=== PATIENT | female | born 1955 | race Caucasian/White ===

== ENCOUNTER → 2016-03-23 | Outpatient (CLI) | payer BC ==
[~2016-03-23] MED LIST: ALBUAER INH; CALC600T9 PO; CHOL1000 PO; CITA20TA4 PO; HYDR-5688 PO; HYT/2 PO; LPT10 PO; MULT-506 PO; NITR100C41 PO; QVRINH80 INH
[2016-03-23 17:07] LABS: URINE APPEARANCE CLEAR (CLEAR); URINE BILIRUBIN NEG (NEG); URINE COLOR YELLOW; URINE EPITHELIAL CELL AUTO 0-5 /lpf (0-5); URINE NITRITE NEG (NEG); URINE SPECIFIC GRAVITY 1.013 (1.000-1.030); UROBILINOGEN NEG (NEG)
[2016-03-23 17:17] LABS: MANUAL MICROSCOPIC REQUIRED? NO; REVIEW REQ? NO
== END | disposition home or self-care (01) ==
LOC: C.LABBC 12:12
PROVIDERS: ATTEND Internal Medicine
DX: E78.5 Hyperlipidemia, unspecified (principal); R35.0 Frequency of micturition

== ENCOUNTER → 2016-03-30 | Day surgery (SDC) | payer BC ==
[2016-03-15 12:15] LABS: BASO % 1.1 %; BASO ABS # 0.04 K/uL (0-0.2); COMPLETE YES; HEMATOCRIT 42.2 % (37-47); LYMPH % 38.7 %; LYMPH ABS # 1.35 K/uL (1.2-3.4); MEAN CELL VOLUME 93.8 fL (80-100); MEAN CORPUSCULAR HEMOGLOBIN 31.3 pg (25-34); MEAN CORPUSCULAR HGB CONC 33.4 g/dl (32-36); MEAN PLATELET VOLUME 10.5 fL (7.4-10.4); MONO % 10.3 %; NEUT % 45.9 %; PLATELET COUNT 250 K/uL (130-400); WHITE BLOOD COUNT 3.49 K/uL (4.8-10.8)
[2016-03-15 12:25] LABS: BLOOD UREA NITROGEN 13 mg/dl (7-18); BUN/CREATININE RATIO 14.9 (10-20); CALCIUM 9.3 mg/dl (8.5-10.1); CARBON DIOXIDE 29 mmol/L (21-32); CHLORIDE 106 mmol/L (98-107); GLUCOSE 86 mg/dl (70-99); SODIUM 142 mmol/L (136-145)
[2016-03-22 12:56] VITALS: Ht 162.6 cm; Wt 68.2 kg
[~2016-03-30] VITALS: Ht 162.6 cm; Wt 68.2 kg
[~2016-03-30] MED LIST changes: +ATROPINE SULFATE 0.1 MG/ML 5ML SYR IV PRN; +BUPIVACAINE 0.5 % 5 MG/1 ML MPF 30ML VIAL ONE; +BUPIVACAINE/EPINEPHRINE 0.5% MPF 1:200,000 30 ML VIAL ONE; +CEFAZOLIN 1000MG/55 ML D5W IV SCH; +DEXAMETHASONE SOD INJ 4 MG/ML VIAL ONE; +EpHEDrine SULFATE INJ 50 MG/ML AMP IV PRN; +EpHEDrine SULFATE INJ 50 MG/ML AMP ONE; +FENTANYL CITRATE INJ 50 MCG/1 ML 2 ML VIAL IV PRN; +FENTANYL CITRATE INJ 50 MCG/1 ML 2 ML VIAL ONE; +FLUMAZENIL 0.1 MG/1 ML 10 ML VIAL IV PRN; +GLYCOPYRROLATE INJ 0.2 MG/ML VIAL ONE; +HYDROCODONE/ACETAMOPHEN 5/325MG TAB PO PRN; +HYDROmorphone INJ 2 MG/ML SYR/VIAL IV PRN; +LABETALOL HCL IV 5 MG/ML 20ML IV PRN; +LACTATED RINGER'S 1000ML 1,000 ML IV SCH; +LIDOCAINE HCL 2% 2 ML VIAL (20MG/ML) ONE; +LIDOCAINE/EPINEPHRINE 1% INJ 50 ML VIAL ONE; +MEPERIDINE HCL 25 MG/ML CARP IV PRN; +MIDAZOLAM HCL 1 MG/ML 2ML VIAL ONE; +MoRPHine SULFATE 2 MG/ML CARP IV PRN; +NALOXONE HCL 0.4 MG/1 ML VIAL/CARP IV PRN; +ONDANSETRON INJ 2 MG/ML 2 ML VIAL IV PRN; +ONDANSETRON INJ 2 MG/ML 2 ML VIAL ONE; +PHENYLEPHRINE 100MCG/ML 5ML SYR IV PRN; +PROPOFOL IV EMULSION 10 MG/ML 20 ML VIAL IV ONE; +SODIUM CHLORIDE 0.9% 1000ML 1,000 ML IV SCH; +SODIUM CHLORIDE 0.9% INJ 10 ML VIAL ONE
--- NOTE | 2016-03-30 06:50 | History & Physical Bridge Note ---
H&P Re-Evaluation Bridge Note: I have examined the patient, reviewed the History & Physical and in the interval since the performance of the History & Physical I have noted the following changes of clinical significance: No changes noted
--- NOTE | 2016-03-30 08:53 | [facility] Post Operative Brief Note ---
Immediate Operative Summary Operative Date Mar 30, 2016. Pre-Operative Diagnosis Right Foot Ganglion Cyst Post-Operative Diagnosis Same Procedure(s) Performed Right Foot Ganglion Cyst Excision Surgeon Dr. Rhodes Dock Operator Surgeon(s) Cezar Foster MD Estimated Blood Loss 10 mL Findings ganglion emanating from first MTP joint Specimens A.) Right Foot Ganglion Drains 0 Anesthesia LMA Complication(s) None Disposition Recovery Room / PACU
--- NOTE | 2016-03-30 09:10 | Discharge Instructions-SurgCtr ---
Discharge Instructions Visit Reason for Visit: Right Foot Ganglion Cyst Discharge Discharge Diagnosis / Problem: Right foot ganglion cyst excision Discharge Goals Goal(s): Decrease discomfort, Improve function, Increase independence Activity Recommendations Activity Limitations: per Instructions/Follow-up section Anesthesia . Post Anesthesia Instructions: If you have had General Anesthesia or IV Sedation: * Do not drive today. * Resume driving when surgeon permits. * Do not make important decisions or sign legal documents today. * Call surgeon for: 1. Temperature elevations greater than 101 degrees F. 2. Uncontrollable pain. 3. Excessive bleeding. 4. Persistent nausea and vomiting. 5. Medication intolerance (nausea, vomiting or rash). * For nausea and vomiting use only clear liquids such as: tea, soda, bouillon until nausea subsides, then gradually increase diet as tolerated. * If you have any concerns or questions, call your surgeon's office. If physician is unavailable and it is an emergency, call 911 or go to the nearest emergency room. . Instructions / Follow-Up Instructions / Follow-Up DIET: * Resume previous diet. MEDICATIONS: * Please take your prescriptions as instructed at your pre-op appointment and/ or see medication discharge instructions listed above. * If concerns develop, call your physician's office at . SPECIAL CARE INSTRUCTIONS: * Can do full weight bearing with postop shoe. * Ice/Elevate as instructed. * Keep dressing clean, dry, intact. * Your surgical extremity may be discolored due to prepping agents used on the skin. A bluish-green tint is a normal variant and should not cause alarm. Call your doctor at [phone] if: * Temperature above 101 degrees * Pain not relieved by pain medicine ordered * There is increased drainage or redness from any incision * You have any unanswered questions, problems or concerns. FOLLOW UP VISIT: * If not already scheduled, please call the office at to schedule a follow-up appointment. * Follow up with Dr. Rhodes on 04/11/16 Diet Recommendations Home Diet: no limitations, resume previous diet Procedures Procedures Performed: Right Foot Ganglion Cyst Excision Pending Studies Studies pending at discharge: no Medical Emergencies . Who to Call and When: Medical Emergencies: If at any time you feel your situation is an emergency, please call 911 immediately. . Non-Emergent Contact Non-Emergency issues call your: Surgeon Call Non-Emergent contact if: you have a fever, your pain is not controlled, wound has increased drainage . . "Provider Documentation" section prepared by Miguel Angel Ash.
--- NOTE | 2016-03-30 09:12 | [facility] Post Operative Brief Note ---
Immediate Operative Summary Operative Date Mar 30, 2016. Pre-Operative Diagnosis Right Foot Ganglion Cyst Post-Operative Diagnosis Same Procedure(s) Performed Right Foot Ganglion Cyst Excision Surgeon Dr. Rhodes Towel Stretcher Surgeon(s) Cezar Foster MD Estimated Blood Loss 10 mL Findings Right foot cystic mass Specimens A.) Right Foot Ganglion Complication(s) None Disposition PCU
--- NOTE | 2016-03-30 09:18 | OPERATIVE REPORT ---
DATE OF OPERATION: 03/30/2016 PREOPERATIVE DIAGNOSIS: Ganglion cyst on the dorsum of the right foot. POSTOPERATIVE DIAGNOSIS: Ganglion cyst on the dorsum of the right foot originating from the first metatarsophalangeal joint. PROCEDURE PERFORMED: Excision of right foot dorsal ganglion cyst. SURGEON: Dr. Rhodes. PIPE BUFFER: Miguel Angel Tai MD, fellow. No resident or PA available. ANESTHESIA: Laryngeal mask. INDICATIONS OF PROCEDURE: The patient is a 61-year-old female with a large ganglion cyst on the dorsum of the right foot. This has been aspirated previously and has recurred. This cyst was about 4-5 cm long, 3 cm wide and 2 cm thick. It was situated on the dorsum of the foot just proximal to the tarsometatarsal joint. It interferes with shoe wear. Treatment options, risks and benefits were discussed and she elected to proceed with operative intervention. PROCEDURE IN DETAIL: Informed consent was obtained. The patient identified as Yary Corcoran. She identified the operative site as the right foot. I marked it with my initials. A preop surgical time-out was performed. A preop dose of IV antibiotics was given. She was taken to the operating room, positioned supine on the operating room table. A laryngeal mask anesthetic was administered. A tourniquet was applied to the right calf just below the fibular neck. The right foot was then prepped and draped in usual sterile fashion. The ganglion cyst was soft and pliable and was as mentioned above. DVT prophylaxis will be done with early mobility. A bump was placed under the right hip. Prior to the procedure and prior to prepping and draping, the course of the dorsalis pedis artery was identified proximal to the ganglion and marked. I could not identify it reliably on either side, but it seemed to be more towards the lateral side than the medial side. The right foot was then prepped and draped in usual sterile fashion. The limb was exsanguinated with the Esmarch, tourniquet inflated to 225 mmHg. I initially made approximate 6 cm incision centered over the cyst and extending several centimeters proximal in order to identify the neurovascular bundle. Blunt dissection was utilized down through the skin. The cyst was inadvertently ruptured and repaired with 3-0 Vicryl. Blunt dissection proximally was performed and the dorsalis pedis artery and the neurovascular bundle were identified deep and protected. The cyst was then carefully shelled out from the surrounding tissues. Care was taken on the lateral side to identify and protect the neurovascular bundle. Medially, the cyst was intimately associated with it and scarred into the extensor hallucis brevis and longus tendons and these were meticulously dissected out from there adhesions to the cyst wall. After dissecting out the cyst in the mid foot it was noted that it had a well-defined socket that went distally and appeared to track along the path of the EHL tendon sheath. The incision was therefore extended more distally and further dissection was performed again taking care to protect the neurovascular bundles and tendon. The incision had to be extended again as the stalk of the cyst clearly went down to the metatarsophalangeal joint. The incision was extended down to the level of the MTP joint dorsally. I then went ahead and carefully identified both tendons at the level of the joint and dissected the stalk down and it definitively came from the dorsal aspect of the MTP joint, a 5 x 5 mm2 of dorsal capsule was excised and the cyst was resected and sent for a pathological specimen. The tourniquet was let down and meticulous hemostasis was performed. There was pulsatile flow through the dorsalis pedis artery and there was no significant bleeding. The wound was copiously irrigated with sterile saline. Hemostasis with pressure and electrocautery. The EHL and EHB tendons remained intact and the extensor digitorum communis tendon located medially were also noted. The incision was then closed with interrupted horizontal mattress 4-0 nylon sutures. A 50:50 mixture of 1% lidocaine and 0.5% Marcaine, both with epinephrine was injected into the skin. A soft sterile dressing was applied along with a boot. The patient was then awakened from anesthesia without difficulty and taken to recovery room in stable condition. Specimens were as mentioned above. There were no complications. Counts were correct at the end of case. Blood loss was minimal/10 mL. At the conclusion of the operation, I spoke to patient's and informed him of my findings and gave detailed postoperative instructions. I discussed with him that due to the long stalk associated with the cyst and in an effort to prevent recurrence of the cyst, this required lengthening of the incision longer than the patient and I had discussed to adequately treat the pathology that was present. She can weightbear as tolerated. I attest to the content of the Intraoperative Record and any orders documented therein. Any exceptio ns are noted below.
--- NOTE | 2016-03-30 09:57 | Anesthesia Progress Nt - [facility] ---
Anesthesia Post Op Note Date & Time Mar 30, 2016 at 09:54 Vital Signs Pain Intensity: 2 Vital Signs Past 12 Hours Date Time Temp Pulse Resp B/P Pulse Ox O2 Delivery O2 Flow Rate FiO2 03/30/16 09:49 36.6 88 16 106/72 98 Room Air 03/30/16 09:39 82 9 99 03/30/16 09:38 113/80 03/30/16 09:34 83 20 100 03/30/16 09:34 86 20 03/30/16 09:33 118/77 03/30/16 09:29 85 17 03/30/16 09:29 87 17 97 03/30/16 09:28 113/79 03/30/16 09:24 89 22 99 03/30/16 09:24 89 22 03/30/16 09:23 119/86 03/30/16 09:19 83 12 100 03/30/16 09:19 83 12 03/30/16 09:18 129/84 03/30/16 09:14 89 20 03/30/16 09:14 93 20 99 03/30/16 09:13 119/73 03/30/16 09:09 93 16 100 03/30/16 09:09 92 16 03/30/16 09:08 121/77 03/30/16 09:04 93 17 03/30/16 09:04 93 17 100 03/30/16 09:04 37.1 95 16 117/79 100 Mask 6 03/30/16 06:30 36.8 72 16 112/75 95 Room Air Notes Mental Status: alert / awake / arousable, participated in evaluation Pt Amnestic to Procedure: Yes Nausea / Vomiting: adequately controlled Pain: adequately controlled Airway Patency, RR, SpO2: stable & adequate BP & HR: stable & adequate, see Notes Hydration State: stable & adequate Anesthetic Complications: no major complications apparent The patient was noted to have multiple PVCs during surgery and was treated with glycopyrrolate for bradycardia in the OR. Her vitals were otherwise stable. She was stable in the PACU but continued to exhibit PVCs on the monitor. A 12 lead EKG was obtained that showed PVCs along with a prolonged QT. The patient' s vital signs were all stable. The patient feels well aside from some surgical site pain. I spoke to Dr. Baron who will follow up with the patient as an outpatient.
[2016-03-30 10:05] VITALS: TEMP 36.8
[2016-03-30 10:49] VITALS: BP 105/67; PULSE 70; O2SAT 96
== END | disposition home or self-care (01) ==
LOC: X.SURG 06:17
PROVIDERS: ATTEND Physical Medicine & Rehabilitation Sports Medicine
DX: M67.40 Ganglion, unspecified site (principal); J45.909 Unspecified asthma, uncomplicated; E78.5 Hyperlipidemia, unspecified; K21.9 Gastro-esophageal reflux disease without esophagitis; F32.9 Major depressive disorder, single episode, unspecified; Z98.890 Other specified postprocedural states; Z82.49 Family history of ischemic heart disease and other diseases of the circulatory system; Z80.8 Family history of malignant neoplasm of other organs or systems

== ENCOUNTER → 2016-04-03 | Outpatient (CLI) | payer BC ==
[~2016-04-03] MED LIST changes: -ATROPINE SULFATE 0.1 MG/ML 5ML SYR IV PRN; -BUPIVACAINE 0.5 % 5 MG/1 ML MPF 30ML VIAL ONE; -BUPIVACAINE/EPINEPHRINE 0.5% MPF 1:200,000 30 ML VIAL ONE; -CEFAZOLIN 1000MG/55 ML D5W IV SCH; -DEXAMETHASONE SOD INJ 4 MG/ML VIAL ONE; -EpHEDrine SULFATE INJ 50 MG/ML AMP IV PRN; -EpHEDrine SULFATE INJ 50 MG/ML AMP ONE; -FENTANYL CITRATE INJ 50 MCG/1 ML 2 ML VIAL IV PRN; -FENTANYL CITRATE INJ 50 MCG/1 ML 2 ML VIAL ONE; -FLUMAZENIL 0.1 MG/1 ML 10 ML VIAL IV PRN; -GLYCOPYRROLATE INJ 0.2 MG/ML VIAL ONE; -HYDROCODONE/ACETAMOPHEN 5/325MG TAB PO PRN; -HYDROmorphone INJ 2 MG/ML SYR/VIAL IV PRN; -LABETALOL HCL IV 5 MG/ML 20ML IV PRN; -LACTATED RINGER'S 1000ML 1,000 ML IV SCH; -LIDOCAINE HCL 2% 2 ML VIAL (20MG/ML) ONE; -LIDOCAINE/EPINEPHRINE 1% INJ 50 ML VIAL ONE; -MEPERIDINE HCL 25 MG/ML CARP IV PRN; -MIDAZOLAM HCL 1 MG/ML 2ML VIAL ONE; -MoRPHine SULFATE 2 MG/ML CARP IV PRN; -NALOXONE HCL 0.4 MG/1 ML VIAL/CARP IV PRN; -ONDANSETRON INJ 2 MG/ML 2 ML VIAL IV PRN; -ONDANSETRON INJ 2 MG/ML 2 ML VIAL ONE; -PHENYLEPHRINE 100MCG/ML 5ML SYR IV PRN; -PROPOFOL IV EMULSION 10 MG/ML 20 ML VIAL IV ONE; -SODIUM CHLORIDE 0.9% 1000ML 1,000 ML IV SCH; -SODIUM CHLORIDE 0.9% INJ 10 ML VIAL ONE
== END | disposition home or self-care (01) ==
LOC: C.LABSPEC 17:29
PROVIDERS: ATTEND Nurse Practitioner Adult Health
DX: N39.0 Urinary tract infection, site not specified (principal)

== ENCOUNTER → 2016-04-21 | Outpatient (CLI) | payer BC | END | disposition home or self-care (01) | LOC: C.LAB 16:08 | PROVIDERS: ATTEND Nurse Practitioner Adult Health | DX: R82.90 Unspecified abnormal findings in urine (principal); A49.8 Other bacterial infections of unspecified site ==

== ENCOUNTER → 2016-05-08 | Outpatient (CLI) | payer BC ==
--- NOTE | 2016-05-08 11:05 | DIAGNOSTIC IMAGING REPORT ---
RENAL ULTRASOUND HISTORY: Recurrent urinary tract infections. COMPARISON: None. FINDINGS: Right kidney: 10.8 cm. No hydronephrosis. Normal corticomedullary differentiation and cortical thickness. Left kidney: 10.3 cm. No hydronephrosis. Normal corticomedullary differentiation and cortical thickness. Bladder: No bladder wall thickening. The bilateral ureteral jets were identified. IMPRESSION: Normal renal ultrasound. Electronically signed by: Frankie Proctor M.D. 05/08/2016 11:04 AM Dictated Date/Time: 05/08/2016 11:02 AM
== END | disposition home or self-care (01) ==
LOC: C.ULTR 10:30
PROVIDERS: ATTEND Nurse Practitioner Adult Health
DX: N39.0 Urinary tract infection, site not specified (principal)

== ENCOUNTER → 2016-05-17 | Outpatient (CLI) | payer BC | END | disposition home or self-care (01) | LOC: C.LABSPEC 17:15 | PROVIDERS: ATTEND Nurse Practitioner Adult Health | DX: N39.0 Urinary tract infection, site not specified (principal) ==

== ENCOUNTER → 2016-06-02 | Outpatient (CLI) | payer BC ==
[~2016-06-02] MED LIST changes: -NITR100C41 PO; +NITR100C43 PO
[2016-06-02 12:10] LABS: HEMATOCRIT 39.4 % (37-47); MEAN CELL VOLUME 92.7 fL (80-100); MEAN CORPUSCULAR HEMOGLOBIN 30.6 pg (25-34); MEAN PLATELET VOLUME 10.2 fL (7.4-10.4); PLATELET COUNT 279 K/uL (130-400); RED BLOOD COUNT 4.25 M/uL (4.2-5.4); WHITE BLOOD COUNT 10.72 K/uL (4.8-10.8)
[2016-06-02 12:29] LABS: URINE APPEARANCE CLEAR (CLEAR); URINE BILIRUBIN NEG (NEG); URINE COLOR YELLOW; URINE EPITHELIAL CELL AUTO >30 /lpf (0-5); URINE NITRITE NEG (NEG); UROBILINOGEN NEG (NEG); ZZUR CULT IF INDIC CLEAN CATCH YES
[2016-06-02 12:43] LABS: MANUAL MICROSCOPIC REQUIRED? NO; REVIEW REQ? YES
[2016-06-02 16:44] LABS: LYME DISEASE AB IGM NEG (NEG)
[2016-06-02 16:45] LABS: LYME DISEASE AB IGG NEG (NEG)
== END | disposition home or self-care (01) ==
LOC: C.LAB1850 09:45
PROVIDERS: ATTEND Physician Assistant
DX: M79.1 Myalgia (principal); N39.0 Urinary tract infection, site not specified

== ENCOUNTER → 2016-09-22 | Outpatient (CLI) | payer BC ==
[~2016-09-22] MED LIST changes: +NITR100C41 PO; -NITR100C43 PO
[2016-09-22 11:00] LABS: ALT/SGPT 33 U/L (12-78); AST/SGOT 22 U/L (15-37); BLOOD UREA NITROGEN 15 mg/dl (7-18); BUN/CREATININE RATIO 19.1 (10-20); CALCIUM 8.9 mg/dl (8.5-10.1); CARBON DIOXIDE 26 mmol/L (21-32); CHLORIDE 111 mmol/L (98-107); CREATININE 0.81 mg/dl (0.60-1.20); GLUCOSE 101 mg/dl (70-99); POTASSIUM 4.3 mmol/L (3.5-5.1); SODIUM 142 mmol/L (136-145)
[2016-09-22 11:03] LABS: ALB/GLOB RATIO 1.2 (0.9-2); ALKALINE PHOSPHATASE 75 U/L (45-117); CHOLESTEROL 181 mg/dl (0-200); CHOLESTEROL/HDL RATIO 2.5; HDL CHOLESTEROL 71 mg/dl; LDL CHOLESTEROL CALCULATED 93 mg/dl; TRIGLYCERIDES 84 mg/dl (0-150); VERY LOW DENSITY LIPOPROT CALC 17 mg/dl
== END | disposition home or self-care (01) ==
LOC: C.LABBC 09:00
PROVIDERS: ATTEND Internal Medicine
DX: E78.5 Hyperlipidemia, unspecified (principal); E55.9 Vitamin D deficiency, unspecified

== ENCOUNTER → 2016-10-24 | Day surgery (SDC) | payer BC ==
[2016-10-11 14:50] VITALS: Ht 162.6 cm; Wt 70.5 kg
[~2016-10-24] VITALS: Ht 162.6 cm; Wt 70.5 kg
[~2016-10-24] MED LIST changes: -HYDR-5688 PO; -HYT/2 PO; +LIDOCAINE HCL 2% 2 ML VIAL (20MG/ML) ONE; +PROPOFOL IV EMULSION 10 MG/ML 20 ML VIAL IV ONE; +SODIUM CHLORIDE 0.9% 500ML 500 ML IV ONE
[2016-10-24 10:33] VITALS: TEMP 36.6
--- NOTE | 2016-10-24 11:03 | Endo History and Physical ---
History & Physical Date of Service: Oct 24, 2016. Chief Complaint: screening Referring Physician: Dr. Baron History of Present Illness 61 yo CF who presents for colonoscopy secondary to history of colon polyps. Past Surgical History Hx Cardiac Surgery: No Hx Internal Defibrillator: No Hx Pacemaker: No Hx Abdominal Surgery: Yes (, CERVICAL CONIZATION, D&C) Hx of Implantable Prosthesis: No Hx Post-Op Nausea and Vomiting: No Hx Cancer Surgery: No Hx Thoracic Surgery: No Hx Orthopedic: Yes (GANGLION CYST REMOVED RT FOOT) Hx Urinary Tract Surgery: No Family History Polyp, IBD Social History Smoking Status: Never Smoker Hx Substance Use: No Hx Alcohol Use: Yes (1 GLASS OF WINE 4X WEEKLY) Allergies Coded Allergies: No Known Allergies (Verified , 10/24/16) Current Medications Reported Home Medications Medications Dose Route/Sig Max Daily Dose Days Date Category Nitrofurantoin (Nitrofurantoin Macrocrystal) 100 Mg Cap 1 Cap PO HS 10/11/16 Reported Proventil Hfa (Albuterol Sulfate) 108 Mcg/Act Aer 1 Puff INH UD PRN 03/22/16 Reported Qvar (Beclomethasone Dip) 80 Mcg/Act Aer 2 Puff INH QAM PRN 03/22/16 Reported Calcium + D (Calcium Carbonate-Vitamin D) 1 Tab Tab 1 Tab PO HS 03/22/16 Reported Vitamin D3 (Cholecalciferol) 1,000 Unit Tab 1 Tab PO HS 03/22/16 Reported Multivitamin (Multivitamins) Tab 1 Tab PO HS 03/22/16 Reported Citalopram Hydrobromide 20 Mg Tab 1 Tab PO HS 03/22/16 Reported Atorvastatin Calcium (Atorvastatin) 10 Mg Tab 1 Tab PO HS 03/22/16 Reported Vital Signs Weight (Kilograms): 70.45 Height (Feet): 5 Height (Inches): 4 Date Time Temp Pulse Resp B/P (MAP) Pulse Ox O2 Delivery O2 Flow Rate FiO2 10/24/16 10:33 36.6 64 20 110/65 (80) 96 Room Air Physical Exam General Appearance: WD/WN, no apparent distress Respiratory/Chest: Auscultation: breath sounds normal Cardiovascular: Heart Auscultation: RRR Abdomen: Bowel Sounds: normal Inspection & Palpation: soft, non-distended, no tenderness, guarding & rebound Assessment and Plan Assessment: 61 yo CF who presents for colonoscopy secondary to history of colon polyps. Plan: Proceed with colonoscopy.
--- NOTE | 2016-10-24 11:55 | Discharge Instructions ---
Endoscopy Patient Instructions Date / Procedure(s) Performed Oct 24, 2016. Colonoscopy Allergy Information Coded Allergies: No Known Allergies (Verified , 10/24/16) Discharge Date / Findings Oct 24, 2016. Internal hemorrhoids Medication Instructions OK to resume all medications today as prescribed Reported Home Medications Medications Dose Route/Sig Max Daily Dose Days Date Category Nitrofurantoin (Nitrofurantoin Macrocrystal) 100 Mg Cap 1 Cap PO HS 10/11/16 Reported Proventil Hfa (Albuterol Sulfate) 108 Mcg/Act Aer 1 Puff INH UD PRN 03/22/16 Reported Qvar (Beclomethasone Dip) 80 Mcg/Act Aer 2 Puff INH QAM PRN 03/22/16 Reported Calcium + D (Calcium Carbonate-Vitamin D) 1 Tab Tab 1 Tab PO HS 03/22/16 Reported Vitamin D3 (Cholecalciferol) 1,000 Unit Tab 1 Tab PO HS 03/22/16 Reported Multivitamin (Multivitamins) Tab 1 Tab PO HS 03/22/16 Reported Citalopram Hydrobromide 20 Mg Tab 1 Tab PO HS 03/22/16 Reported Atorvastatin Calcium (Atorvastatin) 10 Mg Tab 1 Tab PO HS 03/22/16 Reported Provider Instructions Activity Restrictions - No exercising or heavy lifting for 24 hours. - Do not drink alcohol the day of the procedure. - Do not drive a car or operate machinery until the day after the procedure. - Do not make any important decisions or sign important papers in 24 hours after the procedure. Following Day: - Return to full activity which may include returning to work/school. Diet Start your diet with liquids and light foods (jello, soup, juice, toast). Then eat your usual diet if not nauseated. Treatment For Common After Affects For mild abdominal pain, bloating, or excessive gas: - Rest - Eat lightly - Lie on right side Follow-Up Information Follow-up with Dr. Baron as scheduled Anesthesia Information What You Should Know You have had a procedure that required some medicine to reduce anxiety and discomfort. This treatment is called moderate sedation. After receiving the treatment, you may be sleepy, but you will be able to breathe on your own. The effects of the treatment may last for several hours. Follow these instructions along with Activity/Diet recommendations noted above: * Do NOT do anything where dizziness or clumsiness would be dangerous. * Rest quietly at home today, then you can be up and about tomorrow. * Have a responsible person stay with you the rest of today. * You may have had an I.V. today. If so, you may take the dressing off later today. Recommendations Call your doctor if: * Trouble breathing * Continuous vomiting for more than 24 hours * Temperature above 101 degrees * Severe abdominal pain or bloating * Pain not relieved by pain medicine ordered * There is increased drainage or redness from any incision * A large amount of rectal bleeding greater than 2-3 tablespoons. (If you had a polyp/s removed or have hemorrhoids, a small amount of blood - from the rectum is to be expected.) * You have any unanswered questions or concerns. IN THE EVENT OF A SERIOUS EMERGENCY, GO TO THE NEAREST EMERGENCY ROOM Your discharge instructions were prepared by provider Jv Dunaway. Patient Instructions Signature Page Yary Corcoran Patient (or Guardian) Signature/Date: I have read and understand the instructions given to me by my caregivers. Caregiver/RN/Doctor Signature/Date: The above-named patient and/or guardian has received patient instructions on this date. + Original Patient Signature Page (only) stays with chart. Please make copy for patient.
--- NOTE | 2016-10-24 12:22 | Anesthesiology Progress Note ---
Anesthesia Post Op Note Date & Time Oct 24, 2016 at 12:22 Vital Signs Pain Intensity: 0 Vital Signs Past 12 Hours Date Time Temp Pulse Resp B/P (MAP) Pulse Ox O2 Delivery O2 Flow Rate FiO2 10/24/16 12:09 64 16 104/67 (79) 96 Room Air 10/24/16 11:54 60 16 106/63 (77) 95 Room Air 10/24/16 10:33 36.6 64 20 110/65 (80) 96 Room Air Notes Mental Status: alert / awake / arousable, participated in evaluation Pt Amnestic to Procedure: Yes Nausea / Vomiting: adequately controlled Pain: adequately controlled Airway Patency, RR, SpO2: stable & adequate BP & HR: stable & adequate Hydration State: stable & adequate Anesthetic Complications: no major complications apparent
[2016-10-24 12:24] VITALS: BP 125/74; PULSE 57; O2SAT 99
--- NOTE | 2016-10-25 00:14 | GI REPORT ---
Procedure Date: 10/24/2016 11:28 AM Procedure: Colonoscopy Indications: High risk colon cancer surveillance: Personal history of colonic polyps Medicines: Monitored Anesthesia Care Complications: No immediate complications. Estimated Blood Loss: Estimated blood loss: none. Procedure: Pre-Anesthesia Assessment: - Prior to the procedure, a History and Physical was performed, and patient medications and allergies were reviewed. The patient's tolerance of previous anesthesia was also reviewed. The risks and benefits of the procedure and the sedation options and risks were discussed with the patient. All questions were answered, and informed consent was obtained. Prior Anticoagulants: The patient has taken no previous anticoagulant or antiplatelet agents. ASA Grade Assessment: II - A patient with mild systemic disease. After reviewing the risks and benefits, the patient was deemed in satisfactory condition to undergo the procedure. After I obtained informed consent, the scope was passed under direct vision. Throughout the procedure, the patient's blood pressure, pulse, and oxygen saturations were monitored continuously. The scope was introduced through the anus and advanced to the terminal ileum. The colonoscopy was performed without difficulty. The patient tolerated the procedure well. The quality of the bowel preparation was good. The terminal ileum, ileocecal valve, appendiceal orifice, and rectum were photographed. Findings: Non-bleeding internal hemorrhoids were found during retroflexion. The hemorrhoids were small. The exam was otherwise without abnormality. Impression: - Non-bleeding internal hemorrhoids. - The examination was otherwise normal. - No specimens collected. Recommendation: - Resume previous diet. - Continue present medications. - Repeat colonoscopy in 5 years for surveillance. - Return to primary care physician as previously scheduled. Jv Dunaway, 10/24/2016 12:17:43 PM This report has been signed electronically. Note Initiated On: 10/24/2016 11:28 AM I attest to the content of the Intraoperative Record and orders documented therein, exceptions below
== END | disposition home or self-care (01) ==
LOC: C.GI 10:15
PROVIDERS: ATTEND Internal Medicine
DX: Z12.11 Encounter for screening for malignant neoplasm of colon (principal); Z86.010 Personal history of colon polyps; K64.8 Other hemorrhoids; Z83.71 Family history of colonic polyps; Z83.79 Family history of other diseases of the digestive system; Z79.899 Other long term (current) drug therapy

== ENCOUNTER → 2017-05-30 | Outpatient (CLI) | payer BC ==
[~2017-05-30] MED LIST changes: -LIDOCAINE HCL 2% 2 ML VIAL (20MG/ML) ONE; -NITR100C41 PO; +NITR100C43 PO; -PROPOFOL IV EMULSION 10 MG/ML 20 ML VIAL IV ONE; -SODIUM CHLORIDE 0.9% 500ML 500 ML IV ONE
[2017-05-30 17:33] LABS: ALBUMIN 3.9 gm/dl (3.4-5.0); ALT/SGPT 25 U/L (12-78); AST/SGOT 25 U/L (15-37); BLOOD UREA NITROGEN 13 mg/dl (7-18); CALCIUM 9.1 mg/dl (8.5-10.1); CARBON DIOXIDE 27 mmol/L (21-32); CREATININE 0.84 mg/dl (0.60-1.20); GLUCOSE 101 mg/dl (70-99); POTASSIUM 4.2 mmol/L (3.5-5.1); SODIUM 138 mmol/L (136-145)
[2017-05-30 17:36] LABS: ALKALINE PHOSPHATASE 84 U/L (45-117); CHOLESTEROL 202 mg/dl (0-200); LDL CHOLESTEROL CALCULATED 114 mg/dl; TOTAL PROTEIN 7.1 gm/dl (6.4-8.2)
== END | disposition home or self-care (01) ==
LOC: C.LABBC 09:29
PROVIDERS: ATTEND Internal Medicine
DX: N39.0 Urinary tract infection, site not specified (principal); E78.5 Hyperlipidemia, unspecified; E55.9 Vitamin D deficiency, unspecified

== ENCOUNTER → 2017-10-04 | Outpatient (CLI) | payer BC ==
[~2017-10-04] MED LIST changes: +BECL80AE7 INH; -QVRINH80 INH
== END | disposition home or self-care (01) ==
LOC: C.PAPS 11:53
PROVIDERS: ATTEND Obstetrics & Gynecology
DX: Z01.419 Encounter for gynecological examination (general) (routine) without abnormal findings (principal)

== ENCOUNTER 2024-11-13 07:10 | Observation (INO) ==
--- NOTE | 2024-10-08 09:17 | PAT Medication Instructions ---
Medication Instructions Date of Service October 08, 2024 Home Medications Medication Instructions Recorded azelastine 137 mcg (0.1 %) nasal 2 spray intranasal BID PRN nasal 07/03/23 spray congestion #30 mL beclomethasone dipropionate 80 2 inh inhalation BID 90 days #31.8 07/03/23 mcg/actuation HFA breath activated grams aerosol (Qvar RediHaler) inhalational spacing device #1 ea 07/04/23 duloxetine 30 mg capsule,delayed 30 mg PO HS #90 caps 02/13/24 release benzonatate 100 mg capsule 100 mg PO TID PRN cough #30 caps 03/13/24 atorvastatin 10 mg tablet 10 mg PO HS #90 tabs 04/30/24 albuterol sulfate 90 mcg/actuation 2 puff inhalation Q6H PRN 07/24/24 aerosol inhaler shortness of breath or wheezing #25.5 grams cholecalciferol (vitamin D3) 50 mcg (2,000 unit) capsule 1,000 mcg PO HS multivitamin 1 tab PO 3XWK azelastine 137 mcg (0.1 %) nasal spray 2 spray intranasal BID PRN nasal congestion beclomethasone dipropionate 80 mcg/actuation HFA breath activated aerosol (Qvar RediHaler) 2 inh inhalation BID ipratropium bromide 21 mcg (0.03 %) nasal spray 2 spray intranasal TID PRN postnasal drip duloxetine 30 mg capsule,delayed release 30 mg PO HS benzonatate 100 mg capsule 100 mg PO TID PRN cough atorvastatin 10 mg tablet 10 mg PO HS albuterol sulfate 90 mcg/actuation aerosol inhaler 2 puff inhalation Q6H PRN shortness of breath or wheezing mecobalamin (vitamin B12) 1,000 mcg chewable tablet 1,000 mcg PO 2XWK omeprazole 40 mg capsule,delayed release 40 mg PO QAM GERD DO NOT take the morning of surgery multivitamin 1 tab PO 3XWK benzonatate 100 mg capsule 100 mg PO TID PRN cough mecobalamin (vitamin B12) 1,000 mcg chewable tablet 1,000 mcg PO 2XWK Take morning of surgery With a small sip of water, OTHERWISE NOTHING TO EAT OR DRINK AFTER MIDNIGHT: azelastine 137 mcg (0.1 %) nasal spray 2 spray intranasal BID PRN nasal congestion (if needed) beclomethasone dipropionate 80 mcg/actuation HFA breath activated aerosol (Qvar RediHaler) 2 inh inhalation BID ipratropium bromide 21 mcg (0.03 %) nasal spray 2 spray intranasal TID PRN postnasal drip (if needed) albuterol sulfate 90 mcg/actuation aerosol inhaler 2 puff inhalation Q6H PRN shortness of breath or wheezing (use if needed; please bring rescue inhaler with you to hospital day of surgery if possible) omeprazole 40 mg capsule,delayed release 40 mg PO QAM GERD Take evening before surgery cholecalciferol (vitamin D3) 50 mcg (2,000 unit) capsule 1,000 mcg PO HS azelastine 137 mcg (0.1 %) nasal spray 2 spray intranasal BID PRN nasal congestion (if needed) beclomethasone dipropionate 80 mcg/actuation HFA breath activated aerosol (Qvar RediHaler) 2 inh inhalation BID ipratropium bromide 21 mcg (0.03 %) nasal spray 2 spray intranasal TID PRN postnasal drip (if needed) duloxetine 30 mg capsule,delayed release 30 mg PO HS benzonatate 100 mg capsule 100 mg PO TID PRN cough (if needed) atorvastatin 10 mg tablet 10 mg PO HS albuterol sulfate 90 mcg/actuation aerosol inhaler 2 puff inhalation Q6H PRN shortness of breath or wheezing (if needed) Other Notes If you have any questions please call us at [phone] or [phone] or [phone] or [phone]
--- NOTE | 2024-10-10 12:57 | Anesthesiology Consultation ---
Date of Service October 10, 2024 Assessment & Plan (1) Encounter for pre-operative examination: Plan - awaiting surgeon ordered [place] PCP clearance, 10/24/24. - PCP office visit 10/02/24 [place]: "...UTI - resolved. Discussed that the symptoms she had may have been from the UTI..." - Outpatient joint assessment: Patient is currently scheduled for inpatient pathway. If re-evaluated and patient/surgeon requests outpatient pathway, patient is not ideal candidate for outpatient joint program. Chart Review Chart Review: Pending: Refer to Additional Notes / Consult section and Patient seen in Pre Admission Testing Teaching & Discussion Pre-Anesthesia Teaching/Discussion Notes: Instructed NPO after midnight before surgery, except medications with 15 cc of water. Medication instructions provided according to the PAT guidelines. History Surgery Operation Date: 11/13/24 11:30 Proposed Procedures p Right Total Knee Arthroplasty - Daryn Langston MD Height/Weight Height: 5 ft 2.5 in Weight: 67.8 kg Allergies Allergy/AdvReac Type Severity Reaction Status Date / Time No Known Allergies Allergy Verified 10/07/24 15:24 Medications Home Medications Medication Instructions Recorded Confirmed Last Taken cholecalciferol (vitamin D3) 50 1,000 mcg PO HS 05/17/19 10/07/24 01/01/24 mcg (2,000 unit) capsule multivitamin 1 tab PO 3XWK 07/21/19 10/07/24 01/01/24 azelastine 137 mcg (0.1 %) nasal 2 spray intranasal BID PRN nasal 07/03/23 10/07/24 Unknown spray congestion #30 mL beclomethasone dipropionate 80 2 inh inhalation BID 90 days #31.8 07/03/23 10/07/24 Unknown mcg/actuation HFA breath activated grams aerosol (Qvar RediHaler) inhalational spacing device #1 ea 07/04/23 10/02/24 Unknown ipratropium bromide 21 mcg (0.03 2 spray intranasal TID PRN 10/15/23 10/07/24 Unknown %) nasal spray postnasal drip duloxetine 30 mg capsule,delayed 30 mg PO HS #90 caps 02/13/24 10/07/24 Unknown release benzonatate 100 mg capsule 100 mg PO TID PRN cough #30 caps 03/13/24 10/07/24 Unknown atorvastatin 10 mg tablet 10 mg PO HS #90 tabs 04/30/24 10/07/24 Unknown albuterol sulfate 90 mcg/actuation 2 puff inhalation Q6H PRN 07/24/24 10/07/24 Unknown aerosol inhaler shortness of breath or wheezing #25.5 grams mecobalamin (vitamin B12) 1,000 1,000 mcg PO 2XWK 10/07/24 10/07/24 Unknown mcg chewable tablet omeprazole 40 mg capsule,delayed 40 mg PO QAM GERD 10/07/24 10/07/24 Unknown release Past Medical History Medical History (Updated 10/10/24 @ 13:26 by Regina Mckeon PA-C) Acid reflux infrequent Anxiety Asthma cough variant asthma, inhaler prn, rarely uses-last albuterol inhaler use several weeks ago Chronic reflux esophagitis "flares once in awhile" Chronic rhinitis DDD (degenerative disc disease), lumbar Dysgeusia chronic, intermittent History of dysphagia History of ESBL E. coli infection ~09/15/24 in urine - treated with abx. History of esophageal dilatation History of prolonged Q-T interval on ECG pt denies Hx of colonic polyp Hx of hematuria (2022) Hx of vertigo Hyperlipidemia Ileitis hx Left leg pain gets coxcomb get shots into both knees every 6 months Osteoarthritis Osteopenia Peripheral neuropathy chronic, feet and hands Prediabetes last A1C 5.8% (09/30/24) - no medications Recurrent UTI (urinary tract infection) "bladder is colonized by some kind of bacteria" - last treated for ESBL in urine ~09/15/24 with abx. Schatzki's ring Patient denies h/o stroke, seizures, heart attack, heart failure, HTN, blood clots/DVTs or blood transfusions. Exercise / Class Metabolic Activity II 4-5 Yardwork/Stairs/Walk up hill (denies chest discomfort or shortness of breath with one flight of stairs) Past Family History Family History Sister Breast cancer Father Coronary heart disease Lung cancer Colonic polyp Mother Acute gangrenous appendicitis with localized peritonitis, without perforation Skin cancer Diverticulosis Hyperlipidemia Hypertension Pancreatic cancer Other Cardiac disorder No family history of adverse response to anesthesia Past Surgical History Surgical History H/O arthroscopic knee surgery left knee History of biopsy 09/22/11 - endometrial biopsy d/t PMB History of colonoscopy with polypectomy History of cryosurgery cervix History of esophagogastroduodenoscopy (EGD) History of surgical procedure on mouth remove bicuspids - as a child History of surgical removal of ganglion cyst (03/30/16) 03/30/16 - right foot ganglion cyst removal Hx of cystoscopy in office, no issues S/P breast biopsy, left (10/31/13) 10/31/13 - stereotactic (benign, microcalcifications) S/P section x1 S/P dilation and curettage S/P fine needle biopsy (06/23/02) 06/23/02 - right breast (fibrocystic changes) Past Anesthesia History No Hx of Anesthesia Complications and No Family Hx of Anesthesia Complications History of PONV No Hx of PONV and No Hx of Motion Sickness Social History Smoking Status: Never smoker Do You Dip or Chew Tobacco: No Hx Alcohol Use: Yes Alcohol type: wine alcohol intake frequency: a few times a month Hx Substance Use: No substance use type: does not use Review of Systems Snoring, denies witnessed apneas. Patient denies chest pain, shortness of breath, dyspnea on exertion, fever, chills, cough, wheezing, or palpitations. Physical Exam Vital Signs Vitals BP 110/71 P 79 TEMP 98.3 SP02 96% on RA RESP 18 Physical Patient resting comfortably in chair in no acute distress, alert and oriented, responding appropriately throughout visit Full cervical extension range of motion without pain TMD 3.5 finger breadths Mallampati Score 2 Dentition: intact, denies chipped or loose teeth, caps/crowns, implants or bridges Lungs: normal respiratory effort. Good air movement, clear throughout to auscultation, no adventitious breath sounds Cardiac: regular rate and rhythm, no murmurs noted Carotid arteries: negative bruit bilat Lab Results Anesthesia Preop Results Results Anesthesia Widget: WBC 6.39 K/ul (4.8-10.8) 09/30/24 Hgb 13.1 g/dl (12.0-16.0) 09/30/24 Hct 38.6 % (37.0-47.0) 09/30/24 Plt 346 K/uL (130-400) 09/30/24 Na 139 mmol/L (136-145) 09/30/24 K 3.9 mmol/L (3.5-5.1) 09/30/24 Cl 107 mmol/L (98-107) 09/30/24 CO2 25 mmol/L (21-32) 09/30/24 BUN 17 mg/dl (6-23) 09/30/24 Creat 0.73 mg/dl (0.6-1.2) 09/30/24 Glucose Level 113 mg/dl (70-99(Fasting)) H 09/30/24 PT 10.7 Seconds (9.0-12.0) 10/10/24 PTT 28 Seconds (21-31) 10/10/24 INR 1.0 (0.9-1.1) 10/10/24 TSH 2.434 uIu/ml (0.300-4.500) 09/30/24 Free T4 0.60 ng/dl (0.61-1.60) L 09/30/24 HA1c 5.8 % (4.5-5.6) H 09/30/24 Urine Color Yellow 10/10/24 Urine Appearance Clear (Clear) 10/10/24 Urine pH 5.5 (4.5-7.5) 10/10/24 Urine Specific [place] 1.011 (1.000-1.030) 10/10/24 Urine Protein Negative (Negative) 10/10/24 Urine Glucose (UA) Negative (Negative) 10/10/24 Urine Ketones Negative (Negative) 10/10/24 Urine Blood Negative (Negative) 10/10/24 Urine Nitrite Positive (Negative) A 10/10/24 Urine Bilirubin Negative (Negative) 10/10/24 Urine Urobilinogen Negative (Negative) 10/10/24 Urine Leukocyte Esterase Negative (Negative) 10/10/24 Urine WBC (Auto) 0-5 /hpf (0-5) 10/10/24 Urine RBC (Auto) 0-2 /hpf (0-2) 10/10/24 Urine Hyaline Casts (Auto) 0-2 /lpf (0-2) 10/10/24 Urine Epithelial Cells (Auto) 0-2 /hpf (0-2) 10/10/24 Urine Bacteria (Auto) 4+ (None Seen) H 10/10/24 SARS-CoV-2, RNA, NAAT Negative 09/15/24 Blood Type O Positive 10/10/24 Antibody Screen NEGATIVE 10/10/24 Testing Laboratory Results Surgeon's office made aware of abnormal UA. Electrocardiogram Date: 10/10/24 NSR, rate 72 bpm Low voltage QRS Chest X-Ray Date: 10/10/24 No active cardiopulmonary disease.
--- NOTE | 2024-10-22 15:22 | History & Physical Report ---
Date of Service October 22, 2024 Assessment & Plan (1) Osteoarthritis of right knee: Plan: PRE-OP Diagnosis: Right knee osteoarthritis Planned Procedure: Right total knee arthroplasty Bone density scan of the right knee obtained 11/[address] [facility] show osteopenia Plan: Patient is scheduled to undergo this procedure at the [facility] with Dr. Lansgton on , November 13, 2024. Risks and complications of the procedure such as: Infection, bleeding, pain, scarring, nerve blood vessel damage, weakness, wound problems, stiffness, incomplete relief of symptoms, hardware failure, hardware loosening, wear, fracture, tendon or ligament injury, blood clots, embolism, cardiac, stroke and were explained to the patient at her visit today and informed consent for the procedure was obtained. We will need to obtain preoperative medical clearance from the patient's primary care provider. She is scheduled to see them on October 24. Patient is already met with anesthesia at the hospital and while there she obtained a CBC with differential, complete metabolic panel, PT/INR, blood type and screen, urinalysis, urine culture and sensitivity, EKG and a nasal culture for MRSA.patient's urinalysis did show signs of urinary tract infection that was treated with Cipro. I provided her with an order to obtain a repeat urinalysis this coming Sunday. During today's visit we reviewed the total knee packet. I provided the patient with paperwork to obtain obtaining a handicap placard for her vehicle. I provided her with information about lectures offered by [facility] in regards to joint replacement surgery. Patient has a walker that she will bring with her on the morning of surgery. I recommended that she purchase a shower chair and raised toilet seat. We discussed discharge planning from the hospital. Patient states she will most likely do in-home physical therapy for the first 2 weeks before transitioning to outpatient physical therapy. I advised the patient that she will be provided with a prescription for narcotic pain medication for postoperative pain control. We will have her on aspirin twice daily for the first 30 days postoperatively for blood clot prevention. Patient be scheduled for 2-week postoperative follow-up visit with myself on November 26. This chart was completed utilizing [employer] voice recognition software. Grammatical errors, random word insertions, pronoun errors, and in complete sentences are an occasional consequence of the system. Any questions or concerns about the content, text, or information contained within the body of this dictation should be addressed directly to the physician for clarification. History of Present Illness Chief Complaint: Chief Complaint: Right knee pain Primary Care Provider: Noy Cervantes MD History of Present Illness (including history relevant to procedure): This 69-year-old female presents to the clinic today for her preoperative history and physical. Patient states she has a longstanding history of right knee pain and has had hyaluronic acid injections 5 times. She has also had corticosteroid injections, iovera and has done extensive physical therapy without relief of her symptoms. Patient states she is also used topical Voltaren and Celebrex which were only minimally effective. Due to failed conservative management and persistent medial sided knee pain that is affecting her ability to ambulate properly and do activities that she likes to do, she is elected to proceed with surgical intervention. Review Of Systems: A 12 point review of systems is performed and is unremarkable except for those things stated in the HPI and past medical history. Past Medical History: Problems: Right knee pain Left hip pain Pre-op exam Tear of medial meniscus of left knee Osteoarthritis of left knee Pain in left knee Pain in right knee Skin lesion Preop examination Ganglion cyst Asthma Plantar fasciitis Hypercholesterolemia Anxiety Peripheral neuropathy GERD Hiatal hernia Procedure History Procedure Procedure Date Comments Ganglion cyst Arthroscopy of knee with medial meniscectomy 07/24/2019 - Left knee Shave biopsy and cauterization of skin/ED&C 08/29/2018 Shave biopsy and cauterization of skin 08/03/2016 Punch biopsy of skin 04/04/2016 - Left upper back delivery 1983 Cervical 1977 - [facility] Allergies and Sensitivities: NKA Current Home Meds: (Last Updated 10/21 14:48) DULoxetine (DULoxetine 30 mg oral delayed release capsule) 30 mg PO Daily atorvastatin (atorvastatin 10 mg oral tablet) 10 mg PO Daily celecoxib (CeleBREX) cholecalciferol (Vitamin D3) 1 tab PO Daily ciprofloxacin (ciprofloxacin 500 mg oral tablet) 500 mg PO q12h Preop UTI esomeprazole (esomeprazole 40 mg oral delayed release capsule) TAKE 1 CAPSULE BY MOUTH EVERY DAY multivitamin 1 tab PO Daily tretinoin topical (tretinoin 0.05% topical cream) 1 appl topical qhs Apply to face nightly and wait 2 hours between washing face and application. Allergies Allergy/AdvReac Type Severity Reaction Status Date / Time No Known Allergies Allergy Verified 10/07/24 15:24 Home Medications Medication Instructions Recorded Confirmed Type cholecalciferol (vitamin D3) 50 1,000 mcg PO HS 05/17/19 10/07/24 History mcg (2,000 unit) capsule multivitamin 1 tab PO 3XWK 07/21/19 10/07/24 History azelastine 137 mcg (0.1 %) nasal 2 spray intranasal BID PRN nasal 07/03/23 10/07/24 Rx spray congestion #30 mL beclomethasone dipropionate 80 2 inh inhalation BID 90 days #31.8 07/03/23 10/07/24 Rx mcg/actuation HFA breath activated grams aerosol (Qvar RediHaler) inhalational spacing device #1 ea 07/04/23 10/02/24 Rx ipratropium bromide 21 mcg (0.03 2 spray intranasal TID PRN 10/15/23 10/07/24 History %) nasal spray postnasal drip duloxetine 30 mg capsule,delayed 30 mg PO HS #90 caps 02/13/24 10/07/24 Rx release benzonatate 100 mg capsule 100 mg PO TID PRN cough #30 caps 03/13/24 10/07/24 Rx atorvastatin 10 mg tablet 10 mg PO HS #90 tabs 04/30/24 10/07/24 Rx albuterol sulfate 90 mcg/actuation 2 puff inhalation Q6H PRN 07/24/24 10/07/24 Rx aerosol inhaler shortness of breath or wheezing #25.5 grams mecobalamin (vitamin B12) 1,000 1,000 mcg PO 2XWK 10/07/24 10/07/24 History mcg chewable tablet omeprazole 40 mg capsule,delayed 40 mg PO QAM GERD 10/07/24 10/07/24 History release Past Med/Surg History Problem List (Updated 10/22/24 @ 15:21 by Elver Mulligan PA-C) Osteoarthritis of right knee Right knee pain Arthritis of knee, degenerative Mild persistent asthma Chronic rhinitis Peripheral neuropathy Decreased hearing Vitamin B12 deficiency Hip pain, bilateral Low back pain Asymptomatic bacteriuria DDD (degenerative disc disease), lumbar Hyperlipidemia Allergic rhinitis due to dogs (Acute) Allergic rhinitis due to dust (Acute) Asthma (Chronic) Asymptomatic cholelithiasis (Acute) Ganglion cyst of right foot (Acute) Impaired fasting glucose (Acute) Internal hemorrhoids (Acute) Postmenopausal atrophic vaginitis (Acute) Recurrent UTI (Acute) Schatzki's ring (Acute) Stress incontinence in female Tubular adenoma of colon (Acute) Vitamin D deficiency disease (Acute) Medical History Acid reflux infrequent Prediabetes last A1C 5.8% (09/30/24) - no medications History of ESBL E. coli infection ~09/15/24 in urine - treated with abx. History of esophageal dilatation Peripheral neuropathy chronic, feet and hands History of dysphagia Dysgeusia chronic, intermittent Hx of vertigo Hx of colonic polyp DDD (degenerative disc disease), lumbar Schatzki's ring Hx of hematuria (2022) Chronic rhinitis Left leg pain gets coxcomb get shots into both knees every 6 months Ileitis hx Anxiety Osteoarthritis Recurrent UTI (urinary tract infection) "bladder is colonized by some kind of bacteria" - last treated for ESBL in urine ~09/15/24 with abx. Asthma cough variant asthma, inhaler prn, rarely uses-last albuterol inhaler use several weeks ago Chronic reflux esophagitis "flares once in awhile" History of prolonged Q-T interval on ECG pt denies Hyperlipidemia Osteopenia Surgical History Hx of cystoscopy in office, no issues H/O arthroscopic knee surgery left knee History of surgical removal of ganglion cyst (03/30/16) 03/30/16 - right foot ganglion cyst removal History of colonoscopy with polypectomy History of esophagogastroduodenoscopy (EGD) History of surgical procedure on mouth remove bicuspids - as a child S/P fine needle biopsy (06/23/02) 06/23/02 - right breast (fibrocystic changes) S/P breast biopsy, left (10/31/13) 10/31/13 - stereotactic (benign, microcalcifications) History of biopsy 09/22/11 - endometrial biopsy d/t PMB History of cryosurgery cervix S/P dilation and curettage S/P section x1 Family History Sister Breast cancer Father Coronary heart disease Lung cancer Colonic polyp Mother Acute gangrenous appendicitis with localized peritonitis, without perforation Skin cancer Diverticulosis Hyperlipidemia Hypertension Pancreatic cancer Other Cardiac disorder No family history of adverse response to anesthesia Social History Smoking Status: Never smoker Second Hand Exposure: Yes (hx); Do You Dip or Chew Tobacco: No; Hx Alcohol Use: Yes Alcohol type: wine Hx Substance Use: No Preferred Language: Belarusian Communication Ability: Effective Visual Impairment: No Limitations Hearing Ability: Normal 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 Seatbelt Use: always Sunscreen Use: Yes Assistive Devices: Contacts and Glasses Review of Systems All systems reviewed & are unremarkable except as noted in Subjective Physical Exam Physical Exam: Initial Wt: 10/21 67.1 kg 148 lb Physical Exam: (relevant to the procedure, including heart and lung evaluation) General: Alert and oriented x 3 with proper grooming and hygiene Eyes: Pupils are equal reactive to light with accommodation. Extraocular moods are intact Throat: Posterior pharynx clear with absence of edema, erythema or exudate. Dentition is appropriate Cardiac: Regular rate and rhythm with no murmurs or gallops appreciated Lungs: Clear to auscultation throughout with no wheezing, rales or rhonchi Abdomen: Nonobese, nondistended, nontender with NABS Extremities: Right knee; varus malalignment, active knee range of motion is from 0 degrees of extension to 115 degrees of flexion. Popliteal angle is 35 degrees. Patient experiences medial joint line tenderness when the is palpated in the flexed position. She has no laxity with varus or valgus stressing. Posterior drawer test is slightly positive. Alex test negative. Patient is neurovascularly intact in the right lower extremity. Neuro: Cranial nerves II through XII are intact with no motor or sensory deficit Skin: Normal appearance no open skin areas or discharge Results & Data Diagnostic Findings Studies (relevant to the procedure): MRI of the right knee done 08/21/2024 full thickness cartilage loss on the medial patellofemoral joint with bone marrow edema. There are degenerative changes in the medial meniscus and significant cartilage loss medial compartment. ACL and PCL are normal. 4 views of the right knee obtained 07/04/2024 show osteophytes in the tricompartmental osteophyte formation. Medial patella femoral joint space na rrowing. Findings consistent with mild osteoarthritis.
[~2024-11-13 07:10] MED LIST changes: -ALBUAER INH; -BECL80AE7 INH; -CALC600T9 PO; -CHOL1000 PO; -CITA20TA4 PO; -LPT10 PO; -MULT-506 PO; -NITR100C43 PO; +ROPIVACAINE 0.5% 5 MG/ML 30 ML VIAL ONE
[2024-11-13] MEDS ORDERED: MIDAZOLAM HCL 1 MG/ML 2ML VIAL ONE (07:37)
[2024-11-13] MEDS: ACETAMINOPHEN 500 MG TAB PO SCH ×2 (07:44→13:48)
[2024-11-13] MEDS: LR 500ML BOLUS, THEN 15ML/HR IV SCH (07:44)
[2024-11-13] MEDS: dexAMETHasone**PF** 10 MG/ML VIAL IV SCH (07:45)
[2024-11-13] MEDS: FAMOTIDINE 20 MG TAB PO SCH (07:45)
[2024-11-13] MEDS: CeleBREX 200 MG CAP PO SCH (07:45)
[2024-11-13] MEDS: LR 60ML/HR IV SCH (07:46)
[2024-11-13] MEDS ORDERED: LIDOCAINE 2% 2 ML VIAL/AMP(20MG/ML) INFIL ONE (08:17)
[2024-11-13] MEDS ORDERED: PROPOFOL IV EMULSION 10 MG/ML 20 ML VIAL IV ONE (08:17)
--- NOTE | 2024-11-13 08:28 | History & Physical Bridge Note ---
Date of Service November 13, 2024 History & Physical Bridge Note I have examined the patient, reviewed the History & Physical and in the interval since the performance of the History & Physical I have noted the following changes of clinical significance: no changes noted
[2024-11-13] MEDS ORDERED: ONDANSETRON INJ 2 MG/ML 2 ML VIAL IV PRN ×2 (08:41→10:43)
[2024-11-13] MEDS ORDERED: ATROPINE SULFATE 0.1 MG/ML 10ML SYR IV PRN (08:41)
[2024-11-13] MEDS ORDERED: HYDROmorphone INJ 1 MG/ML SYRINGE IV PRN (08:41)
[2024-11-13] MEDS ORDERED: PROMETHAZINE HCL 6.25 MG in SODIUM CHLORIDE 0.9% 50 ML IV PRN (08:41)
[2024-11-13] MEDS: TRANEXAMIC ACID 1,000 MG **IV Pre-op IV SCH (08:45)
[2024-11-13] MEDS: ROPIVACAINE 0.5% HCL/PF 246 MG, Ketorolac (*for OR use only*) 30 MG, EPINEPHrine 30MG/3... INFIL SCH (09:30)
[2024-11-13] MEDS: ORTHO JOINT ANESTHETIC ONE (09:31)
--- NOTE | 2024-11-13 10:37 | Operative Report ---
Post Operative Report Pre & Post Diagnosis Operation Date: 11/13/24 09:00 Pre-Op Diagnosis: Right Knee Osteoarthritis Post-Op Diagnosis: Right Knee Osteoarthritis I identified the patient and participated in the time-out.: Yes Procedure Operation Date: 11/13/24 09:00 Actual Procedures p Right Total Knee Arthroplasty, Cemented(Right) - Daryn Langston MD Surgeon Daryn Langston MD Motor Pool Driver Yaquelin Mulligan PAGuillermo Estimated Blood Loss 50 Findings Consistent with Post-Op Diagnosis Specimens Right knee bone and soft tissue Description of Procedure I was present during the entire case assisting with positioning, prepping, draping, wound retraction, wound closure, dressing and immobilizer placement. No fellow present. Please see Dr. Langston operative note for specifics of the case. I attest to the content of the Intraoperative Record and any orders documented therein. Any exceptions are noted below.
[2024-11-13] MEDS ORDERED: MAGNESIUM HYDROXIDE SUSP 30 ML UDC PO PRN (10:43)
[2024-11-13] MEDS ORDERED: HYDROmorphone INJ 0.5 MG/0.5 ML SYR IV PRN (10:43)
[2024-11-13] MEDS ORDERED: diphenhydrAMINE 50 MG/ML VIAL IV PRN (10:43)
[2024-11-13] MEDS ORDERED: NALOXONE HCL 0.4 MG/1 ML VIAL/CARP IV PRN (10:43)
[2024-11-13] MEDS ORDERED: ALUMINUM/MAGNESIUM SUSP 30 ML UDC PO PRN (10:43)
[2024-11-13] MEDS ORDERED: METOCLOPRAMIDE HCL INJ 5 MG/ML 2 ML VIAL IV PRN (10:43)
--- NOTE | 2024-11-13 10:46 | Operative Report ---
Post Operative Report Pre & Post Diagnosis Operation Date: 11/13/24 09:00 Pre-Op Diagnosis: Right Knee Osteoarthritis Post-Op Diagnosis: Right Knee Osteoarthritis I identified the patient and participated in the time-out.: Yes Procedure Operation Date: 11/13/24 09:00 Actual Procedures p Right Total Knee Arthroplasty, Cemented(Right) - Daryn Langston MD Surgeon Daryn Langston MD Skull Chopper Yaquelin Mulligan PA-C Estimated Blood Loss 50 Findings Consistent with Post-Op Diagnosis Specimens Right knee bone and soft tissue contents Anesthesia Type Spinal MAC Complications none Disposition Disposition: Recovery Room Indications 69-year-old female, with right knee osteoarthritis refractory to conservative management. X-rays demonstrate severe joint space narrowing and tricompartmental osteophytes. I had a long discussion with her about her treatment options, risks and benefits of surgery, alternatives to surgery, and expected outcomes. After reviewing all these she elected to proceed with surgery. All questions were answered. Informed consent was signed. Description of Procedure Patient was identified in the preoperative holding area where the surgical site, right knee, was marked. Spinal anesthetic was placed by anesthesia. Patient was brought back to the operating room, placed on the operating room table, and IV sedation was administered. A bump was placed underneath the ipsilateral hip. All bony prominences were padded. Perioperative antibiotics and tranexamic acid were administered. Exam under anesthesia was performed. This demonstrated range of motion arc from 8 to 105 degrees. She was stable to varus and valgus stress at 30 degrees. The surgical site was prepped and draped in the normal sterile fashion. Prior to incision a multidisciplinary timeout was called. All in the room were in agreement. We began by exsanguinating the limb with an Esmarch bandage. Tourniquet was inflated to 250 mmHg. A 14 cm long incision was made over the anterior aspect of the knee. I dissected through the subcutaneous tissues to the level of the fascia. Full-thickness flaps were raised above the fascia. A median parapatellar arthrotomy was made. Half the fat pad was excised. A medial release was performed with Bovie electrocautery on the proximal tibia. Synovitis in the knee and suprapatellar pouch was removed. The patella was then everted and held with 2 towel clips. She had severe arthritis more in the medial facet than the lateral facet. Medial facet was eburnated. The thickness of the patella was measured at 20 mm. Patellar resection was performed. Caliper showed the patella thickness now to be 13 mm. A size 38 trial was placed and had a great fit. The 3 drill holes were placed then the trial button was placed. The patellar thickness was now 23 mm which I was very happy with. The patellar trial was then removed, and the knee was flexed up. Retractors were placed to protect the MCL and LCL. Osteophytes were removed from the femoral condyles and intercondylar notch. The ACL and PCL were excised. Intramedullary drill guide was drilled into the femur. Distal femoral cutting guide was placed set at 5 degrees of valgus to resect 11 mm off the distal femur. Distal femoral resection was made without difficulty. The tibia was then exposed. The lateral meniscus was sharply excised. The tibial cutting jig was positioned in line with the tibial shaft in the coronal plane and with 3 degrees of posterior slope in the sagittal plane to resect 4 mm off the more involved compartment. The jig was then pinned in position and the tibial cut was made. We then brought the knee into full extension. Lamina spreaders were placed. The medial meniscus was excised. The extension block was then placed for 5 mm thickness poly. This gave us full extension and excellent stability to varus and valgus stress. Next the extension block was removed, the knee was flexed up, collateral ligaments were protected, and the epicondylar axis and Whitesides line were marked out on the distal femoral cut. Femoral sizing guide was placed. External rotation was set at 3 degrees so that the posterior cut would be parallel with the epicondylar axis and perpendicular with Whitesides line. The patient sized to a size 5 femur. 2 pins were then placed through the jig into the distal femur. The jig was removed and the appropriately sized 4-in-1 cutting jig was placed over the pins, then fixated to the bone using threaded, headed pins. We confirmed that we would not notch the femur with our anterior cut. Our 4 cuts were then made. The cutting jig was removed. The flexion block was then placed with the knee held at 90 degrees. There was excellent stability to varus and valgus at 90 degrees with no gapping medially or laterally. Next the box cutting jig was placed on the distal femur. The box cut was made and the femoral trial was impacted into position. Lug holes were drilled in the distal femur. We then reexposed the tibia. The tibia was sized to a 4 for a fixed bearing component and pinned in external rotation on the cut tibial surface. The intramedullary drill followed by the keel punch were used to prepare the tibia. The tibial tray with a 5 mm thickness polyethylene liner was placed and the knee was brought through a full range of motion. There was excellent stability to varus valgus stress throughout a full range of motion, which was approximately 0-125 degrees. Next the trial components were removed. I then injected the posterior capsule and periosteum with the periarticular injection cocktail. The bone cuts were then irrigated and dried while the cement was mixed on the back table. The femoral component was cemented on first. Excess cement was removed. A lap sponge was placed over the femoral component for protection, then the tibia was subluxated anteriorly. The all polyethylene tibial component was then cemented in place. Again excess cement was removed. The knee was brought into full extension and held there until the cement cured. The patella was cemented and clamped. Dilute Betadine solution was then allowed to soak in the knee while the cement cured. Once the cement was fully cured, the knee was irrigated out, the tourniquet was let down and meticulous hemostasis was ensured. The knee was brought through a full range of motion. I was were very happy with the patella tracking and the stability. We then began to close. Interrupted 0 Vicryl suture was used to repair the patellar retinaculum in [id number] fashion. The quadriceps and patellar tendons were run with #1 Vicryl. The deep dermal layer was closed with interrupted 2-0 Vicryl. Dermabond and Zipline was used for the skin, followed by a Silverlon dressing. A compressive Marvin wrap was placed and the knee was placed into a knee immobilizer. Patient's sedation was lifted and was transferred to recovery room in stable condition. Summary of implants: Depuy Attune Posterior Stabilized Cemented Femur, size 5 right Attune All-polyethylene tibial component, posterior stabilized 5 mm thickness, size 4 Attune patella medialized dome, size 38 2 batches of Palacos bone cement Postoperative course: Patient will be admitted to the floor for pain control and monitoring. Weightbearing as tolerated with a walker with no knee range of motion for 48 hours. Aspirin for DVT prophylaxis. I attest to the content of the Intraoperative Record and any orders documented therein. Any exceptions are noted below.
--- NOTE | 2024-11-13 11:16 | XRay Report ---
XR knee RT 1 or 2V routine CLINICAL HISTORY: Surgical Post Op COMPARISON: 10/21/2024 FINDINGS: Right knee prosthesis shows no hardware complication. There is expected soft tissue gas. IMPRESSION: Unremarkable postoperative exam. ACT 112: Negative or not required by law. Electronically signed by: Aiden Brown M.D. 11/13/2024 11:15 AM
--- NOTE | 2024-11-13 12:30 | Anesthesiology Progress Note ---
Date of Service November 13, 2024 Anesthesia Post Procedure Vital Signs Vital Signs: Temp Pulse Pulse Resp BP Pulse Ox O2 Del Method 11/13/24 12:00 75 17 132/82 95 Room Air 11/13/24 11:45 66 16 142/78 H 100 Room Air 11/13/24 11:30 75 16 123/84 94 Room Air 11/13/24 11:15 36.4 C L 60 14 122/75 100 Room Air 11/13/24 11:05 62 14 121/74 100 Room Air 11/13/24 10:55 63 14 110/76 100 Room Air 11/13/24 10:45 68 14 108/75 98 Room Air 11/13/24 10:37 36.4 C L 78 14 99/70 L 98 Room Air 11/13/24 08:14 37 C 71 20 144/87 H 95 Room Air Transfer of Care Handoff Completed per policy Notes Mental Status: alert / awake / arousable and participated in evaluation Patient Amnestic to Procedure: Yes Nausea / Vomiting: adequately controlled Pain: adequately controlled Airway Patency, RR, SpO2: stable & adequate BP & HR: stable & adequate Hydration State: stable & adequate Neuraxial Anesthesia: was administered and sensory block is resolving Anesthetic Complications: no major complications apparent and Pt Satisfied with anesthetic care
[2024-11-13] MEDS ORDERED: IPRATROPIUM BROMIDE NASAL SPRAY 0.03% 30 ML SL PRN (12:34)
[2024-11-13] MEDS ORDERED: [UNRECOGNIZED DRUG - OTHER] SCH (12:34)
[2024-11-13] MEDS ORDERED: AZELASTINE HCL 0.1% NASAL 200 SPRAYS/27,400 MCG BTL PRN (12:34)
[2024-11-13] MEDS ORDERED: BENZONATATE 100 MG CAPSULE PO PRN (12:34)
[2024-11-13] MEDS ORDERED: ALBUTEROL HFA 8 GM INHALER INH PRN (12:34)
[2024-11-13] MEDS: SODIUM CHLORIDE 0.9% 1,000 ML IV SCH (13:45)
[2024-11-13] MEDS: KETOROLAC TROMETHAMINE 15 MG/ML VIAL IV SCH (13:48)
[2024-11-13] MEDS: Scopolamine CHECK PATCH PLACEMENT SCH (16:48)
[2024-11-13] MEDS ORDERED: Nursing to Pharmacy Communication SCH (17:30)
[2024-11-13] MEDS ORDERED: CYANOCOBALAMIN (B-12) 500 MCG TABLET PO SCH (21:00)
[2024-11-13] MEDS: SENNA 8.6 MG TAB PO SCH (21:59)
[2024-11-13] MEDS: ATORVASTATIN 10 MG TAB PO SCH (22:00)
[2024-11-13] MEDS: CHOLECALCIFEROL 25 MCG (1000 UNITS) TAB PO SCH (22:00)
[2024-11-13] MEDS: CYANOCOBALAMIN (B-12) 500 MCG TABLET PO SCH (22:01)
[2024-11-13] MEDS: DOCUSATE SODIUM 100 MG CAP PO SCH (22:02)
[2024-11-14 03:57] VITALS: TEMP 98.8
[2024-11-14 07:24] LABS: Hematocrit (blood only) 30.5 % (37.0-47.0); Hemoglobin 9.9 g/dl (12.0-16.0); Mean Corpuscular Hemoglobin 30.3 pg (25.0-34.0); Mean Corpuscular Volume 93.3 fL (80.0-100.0); Platelet Count 205 K/uL (130-400); RDW Standard Deviation 44.5 fL (36.4-46.3); Red Blood Count 3.27 M/uL (4.20-5.40); White Blood Count 9.87 K/ul (4.8-10.8)
[2024-11-14 07:42] LABS: Anion Gap 4.0 (3-11); Blood Urea Nitrogen 18.0 mg/dl (6-23); Calcium 8.4 mg/dl (8.6-10.3); Carbon Dioxide 27.0 mmol/L (21-32); Chloride 111.0 mmol/L (98-107); Creatinine Clr Calc Pharmacy 60.5 ml/min; Glucose 123.0 mg/dl (70-99(Fasting)); Potassium 4.1 mmol/L (3.5-5.1); Sodium 142.0 mmol/L (136-145)
[2024-11-14 07:52] VITALS: BP 113/73; RESP 18; O2SAT 94
[2024-11-14] MEDS: dexAMETHasone 10 MG in SYRINGE 0 ML IV SCH (08:18)
[2024-11-14] MEDS: MULTIVITAMIN TAB PO SCH (08:19)
[2024-11-14] MEDS: FLUTICASONE FUROATE 200MCG 14 PUFFS/INHALER INH SCH (08:19)
[2024-11-14] MEDS: ASPIRIN 81 MG ECTAB PO SCH (08:19)
[2024-11-14] MEDS ORDERED: MULTIVITAMIN TAB PO SCH (09:00)
--- NOTE | 2024-11-14 10:09 | Orthopedic Progress Note ---
Date of Service November 14, 2024 Assessment & Plan (1) S/P total knee arthroplasty: Plan: PT/OT Weightbearing as tolerated with walker assistance Immobilizer use 48 hrs hours postop Ice with easy wrap Keep Silverlon dressing in place DVT prophylaxis with aspirin and ABE stockings Sublingual Zofran for postoperative nausea and vomiting Pain control with p.o. medication Plan is to discharge home today with home physical therapy for the first 2 weeks Follow-up at [facility] orthopedics as previously scheduled With questions contact our clinic at [phone] Admission and Anticipated Discharge Date Admission Date: November 13, 2024 Subjective This 69-year-old female is day 1 status post right total knee arthroplasty. She states she is doing very well. She states that her outer dressing seems to be saturated with blood. Currently she denies chest pain, shortness of breath, fever, chills, sweats, nausea, vomiting, diarrhea, difficulty voiding or numbness or tingling in the right lower extremity. She states she was able to complete physical therapy without issue. Review of Systems Review of Systems: All systems reviewed & are unremarkable except as noted in Subjective Physical Exam Physical Exam: Right knee: Outer dressing is saturated with blood.. I remove the Silverlon, cleansed around the incision site with a sterile saline wipe, patted dry with sterile 4 x 4's being careful not to remove the zipper. I then applied a new Silverlon dressing along with her Abe stocking. Patient was able to perform active straight leg raise test. She was able to actively dorsi and plantarflex her foot. She was able to detect light sensation to touch over the pads of all digits. Active knee range of motion was from 0 degrees of extension I removed it and Silverlon was completely saturated and leaking to 70 degrees of flexion. Her peripheral pulses were 2+. She was neurovascularly intact in the right lower extremity. Results & Data Vital Signs (Past 12 Hours) Vital Signs Temp Pulse Pulse Resp BP Pulse Ox O2 Del Method 11/14/24 07:50 37.1 C 78 18 113/73 94 Room Air 11/14/24 03:48 37.1 C 86 16 103/61 97 Room Air Diagnostic Findings Laboratory Results WBC 9.87 K/ul (4.8-10.8) 11/14/24 06:55 RBC 3.27 M/uL (4.20-5.40) L 11/14/24 06:55 Hgb 9.9 g/dl (12.0-16.0) L 11/14/24 06:55 Hct 30.5 % (37.0-47.0) L 11/14/24 06:55 MCV 93.3 fL (80.0-100.0) 11/14/24 06:55 MCH 30.3 pg (25.0-34.0) 11/14/24 06:55 MCHC 32.5 g/dL (32.0-36.0) 11/14/24 06:55 RDW Std Deviation 44.5 fL (36.4-46.3) 11/14/24 06:55 RDW Coeff of Familia 13.1 % (11.5-14.5) 11/14/24 06:55 Plt Count 205 K/uL (130-400) 11/14/24 06:55 MPV 10.1 fL (9.4-12.4) 11/14/24 06:55 Sodium 142 mmol/L (136-145) 11/14/24 06:55 Potassium 4.1 mmol/L (3.5-5.1) 11/14/24 06:55 Chloride 111 mmol/L (98-107) H 11/14/24 06:55 Carbon Dioxide 27 mmol/L (21-32) 11/14/24 06:55 Anion Gap 4 (3-11) 11/14/24 06:55 BUN 18 mg/dl (6-23) 11/14/24 06:55 Creatinine 0.79 mg/dl (0.6-1.2) 11/14/24 06:55 Est Cr Clr Drug Dosing 60.5 ml/min 11/14/24 06:55 eGFR 79.92 11/14/24 06:55 BUN/Creatinine Ratio 22.8 (10-20) H 11/14/24 06:55 Glucose 123 mg/dl (70-99(Fasting)) H 11/14/24 06:55 Calcium 8.4 mg/dl (8.6-10.3) L 11/14/24 06:55 Impressions Knee X-Ray 11/13/24 10:43 XR knee RT 1 or 2V routine CLINICAL HISTORY: Surgical Post Op COMPARISON: 10/21/2024 FINDINGS: Right knee prosthesis shows no hardware complication. There is expected soft tissue gas. IMPRESSION: Unremarkable postoperative exam. ACT 112: Negative or not required by law. Electronically signed by: Aiden Brown M.D. 11/13/2024 11:15 AM
--- NOTE | 2024-11-14 10:19 | Discharge Summary ---
Date of Service November 14, 2024 Admission HPI Per Admitting Provider History of Present Illness (including history relevant to procedure): This 69-year-old female presents to the clinic today for her preoperative history and physical. Patient states she has a longstanding history of right knee pain and has had hyaluronic acid injections 5 times. She has also had corticosteroid injections, iovera and has done extensive physical therapy without relief of her symptoms. Patient states she is also used topical Voltaren and Celebrex which were only minimally effective. Due to failed conservative management and persistent medial sided knee pain that is affecting her ability to ambulate properly and do activities that she likes to do, she is elected to proceed with surgical intervention. Review Of Systems: A 12 point review of systems is performed and is unremarkable except for those things stated in the HPI and past medical history. Past Medical History: Problems: Right knee pain Left hip pain Pre-op exam Tear of medial meniscus of left knee Osteoarthritis of left knee Pain in left knee Pain in right knee Skin lesion Preop examination Ganglion cyst Asthma Plantar fasciitis Hypercholesterolemia Anxiety Peripheral neuropathy GERD Hiatal hernia Procedure History Procedure Procedure Date Comments Ganglion cyst Arthroscopy of knee with medial meniscectomy 07/24/2019 - Left knee Shave biopsy and cauterization of skin/ED&C 08/29/2018 Shave biopsy and cauterization of skin 08/03/2016 Punch biopsy of skin 04/04/2016 - Left upper back delivery 1984 Cervical 1977 - [facility] Allergies and Sensitivities: NKA Current Home Meds: (Last Updated 10/21 14:48) DULoxetine (DULoxetine 30 mg oral delayed release capsule) 30 mg PO Daily atorvastatin (atorvastatin 10 mg oral tablet) 10 mg PO Daily celecoxib (CeleBREX) cholecalciferol (Vitamin D3) 1 tab PO Daily ciprofloxacin (ciprofloxacin 500 mg oral tablet) 500 mg PO q12h Preop UTI esomeprazole (esomeprazole 40 mg oral delayed release capsule) TAKE 1 CAPSULE BY MOUTH EVERY DAY multivitamin 1 tab PO Daily tretinoin topical (tretinoin 0.05% topical cream) 1 appl topical qhs Apply to face nightly and wait 2 hours between washing face and application. Admission Exam Per Admitting Provider Initial Wt: 10/21 67.1 kg 148 lb Physical Exam: (relevant to the procedure, including heart and lung evaluation) General: Alert and oriented x 3 with proper grooming and hygiene Eyes: Pupils are equal reactive to light with accommodation. Extraocular moods are intact Throat: Posterior pharynx clear with absence of edema, erythema or exudate. Dentition is appropriate Cardiac: Regular rate and rhythm with no murmurs or gallops appreciated Lungs: Clear to auscultation throughout with no wheezing, rales or rhonchi Abdomen: Nonobese, nondistended, nontender with NABS Extremities: Right knee; varus malalignment, active knee range of motion is from 0 degrees of extension to 115 degrees of flexion. Popliteal angle is 35 degrees. Patient experiences medial joint line tenderness when the is palpated in the flexed position. She has no laxity with varus or valgus stressing. Posterior drawer test is slightly positive. Alex test negative. Patient is neurovascularly intact in the right lower extremity. Neuro: Cranial nerves II through XII are intact with no motor or sensory deficit Skin: Normal appearance no open skin areas or discharge Principal Diagnosis Right knee osteoarthritis Discharge Exam Right knee: Outer dressing is saturated with blood.. I remove the Silverlon, cleansed around the incision site with a sterile saline wipe, patted dry with sterile 4 x 4's being careful not to remove the zipper. I then applied a new Silverlon dressing along with her Jen stocking. Patient was able to perform active straight leg raise test. She was able to actively dorsi and plantarflex her foot. She was able to detect light sensation to touch over the pads of all digits. Active knee range of motion was from 0 degrees of extension I removed it and Silverlon was completely saturated and leaking to 70 degrees of flexion. Her peripheral pulses were 2+. She was neurovascularly intact in the right lower extremity. Discharge Data Allergies Allergy/AdvReac Type Severity Reaction Status Date / Time Opioids - Morphine Analogues AdvReac Unknown nausea and Verified 11/13/24 07:28 vomiting Procedures Performed Operation Date: 11/13/24 09:00 Actual Procedures p Right Total Knee Arthroplasty, Cemented(Right) - Daryn Langston MD Ordered Studies 11/13/24 05:00 US - OR guided needle placemen Routine Hospital Course (1) S/P total knee arthroplasty: Patient had an uneventful overnight stay following right total knee arthroplasty. She is very pleased with the results of the surgery. She is planning on being discharged home later today with in-home physical therapy for the first 2 weeks. PT/OT Weightbearing as tolerated with walker assistance Immobilizer use 48 hrs hours postop Ice with easy wrap Keep Silverlon dressing in place DVT prophylaxis with aspirin and JEN stockings Sublingual Zofran for postoperative nausea and vomiting Pain control with p.o. medication Plan is to discharge home today with home physical therapy for the first 2 weeks Follow-up at [facility] orthopedics as previously scheduled With questions contact our clinic at [phone] Total Time Total Time Spent Total Time Spent (In Minutes): 25 mins Discharge Plan Discharge Items Patient Disposition: Home - Home Health Services Reason For Visit: Right Knee Osteoarthritis Discharge Diagnosis: s/p Right total knee arthroplasty Activity: As commented below Lifting: None Bathing: Keep incision dry Bathing Comment: May shower tomorrow Sexual Activity: Wait until after follow-up appointment Exercise/Sports: Wait until after follow-up appointment Driving/Machine Use: No driving until cleared by orthopedic rn Weightbearing: Right weightbearing Weightbearing Comment: as tolerated with walker Non-emergency contact: Surgeon Call non-emergency contact if: you have any medication questions, your pain is not controlled, your temperature is above 101.5, your wound has increased drainage and your wound pain has increased Follow-up/Referrals: Noy Cervantes MD [Primary Care Provider] - [facility] [Non-Staff] - Diet: Regular Addtl Attending Provider Instructions: Post-operative Instructions Dear Patient and Family/Friends, Before you are discharged from the hospital, it is important to know what to expect when you get home after surgery. To that end, we have created this sheet of discharge instructions which covers many commonly asked questions. Make sure you go through this sheet in its entirety with your nurse before you are discharged. Please note that we will go over the specifics of your surgery and recovery when you return for your first post-operative visit. Sincerely, Dr. Langston Medications 1. Oxycodone 5 mg: Take 1 to 2 tablets every 4-6 hours as needed for post operative pain control. A prescription for this medication will be sent to your pharmacy. 2. Celebrex 100 mg: Take 1 tablet twice daily for the first 30 days postoperatively for pain and inflammation relief. This will be sent to your pharmacy with 1 refill 3. Aspirin 81 mg: Take 1 tablet twice daily for the first 30 days postoperatively or DVT prophylaxis. Please purchase the medication 4. Zofran ODT 4 mg: You may use 1 tablet every 8 hours as needed for postoperative nausea and vomiting. This will be sent to your pharmacy. 5. Extra strength Tylenol 500 mg: Take 2 tablets every 6-8 hours as needed for additional supplemental pain control. Please purchase this medication. Pain Expect to be in a fair amount of pain after surgery. Remember, our goal is not to eliminate your pain, but to make it tolerable. It is a good idea to stay ahead of your pain by taking the medications you were prescribed once you get home. Typically, the pain starts improving 3-7 days after surgery. You should start weaning off the narcotic pain medication (oxycodone, hydrocodone, hydromorphone, morphine) as soon as your pain improves. Please call our office if your pain is not adequately controlled. Ice Ice your operative site at least 5 times a day for 15-30 minutes at a time. Make sure you have a thin cloth between the ice or cooling unit and your skin to prevent plascencia bite. This is especially important if you received a nerve block. Continue icing your operative site for the first 5-7 days after surgery, then as needed. Diet/Nausea/Vomiting Start by drinking clear liquids and eating crackers. If you can tolerate this, then you may resume your normal diet. If you feel nauseated or vomit, take Zofran/ondansetron (if prescribed). Please call our office if you have intractable nausea or vomiting, or, if after hours, you may go to the Emergency Room for help. Constipation Constipation is a common side effect of narcotic pain medication. If you have not had a bowel movement within 2 days after surgery, we recommend purchasing an over the counter laxative such as Milk of Magnesia, Dulcolax, or Miralax from a local pharmacy, and taking it as instructed. Call our clinic if any questions. Slings and Braces If you were placed in a sling or brace, it must be worn at all times, including sleep. You may remove your sling or brace for physical therapy, home exercises, and showering. The length of time you will be in your brace and range of motion restrictions depends on what surgery you had; these details will be reviewed at your first post-operative appointment. Nerve block The anesthesia team sometimes places a nerve block to help with post-operative pain control. This results in significant numbness and inability to move the extremity. The nerve block usually wears off in 8-12 hours, but sometimes can last up to 24 hours. Please call our office if you are still unable to move your extremity after 24 hours, unless you received a pain pump to take home. Nerve blocks typically wear off quickly, so start taking pain medication as soon as you start feeling soreness near your surgical site. Weight bearing and Range of Motion. Do not bear any weight through your operative extremity immediately after surgery. If you had upper extremity surgery, do not lift anything with that arm. If you are in a knee brace, keep it locked in place until your follow-up. We will discuss your weight bearing, range of motion, and lifting restrictions in detail at your first post-operative appointment. Continuous Passive Motion (CPM) Machine If you were prescribed a CPM machine, it will start after your first post- operative appointment, at which time we will give you instructions on the range of motion settings and duration of treatment Physical therapy You will be given a prescription for physical therapy or occupational therapy at your first post-operative appointment. Typically, patients start therapy within 1 week of surgery Wound care and showering We will inspect your wound at your first post-operative visit, and may do a dressing change at that time. Most patients will be in a water-proof dressing that is removed 14 days after surgery. It is normal to see some dried blood on the dressing. Do not remove your dressing, paper strips or sutures yourself unless you are given permission. Showering is allowed the day after surgery. Do not scrub or remove any dressings. The wound should not be submerged underwater (i.e. in a bathtub or pool) until 4 weeks after surgery JEN stockings If you were given white stockings, these are to be worn at all times except to shower (on both legs) for the first 2 weeks after surgery. Driving You may not drive while taking narcotic pain medication or while in a cast, splint, sling or brace. You, the patient, need to make the final determination about when you are safe to drive, however, the earliest you may consider driving after surgery is below: Hand/Wrist/Elbow Surgery: 3 days Shoulder Surgery: 2 weeks Hip,/Knee/Ankle Surgery: 4 weeks Fracture repair: 6 weeks Return to Work Your return to work depends on what surgery was done and what type of work you do. Please bring any paperwork your employer needs completed to your first post-operative visit. Also, bring a description of your job duties, as this helps us to understand what risks you may face at work. Travel Avoid long distance travel (greater than 1 hour) in airplanes and cars for the first 6 weeks after surgery. If you must travel, you need to have a Doppler ultrasound done before you travel to rule out a blood clot in your legs. Follow-up You should have a follow-up appointment already scheduled 1-2 days after surgery. If not, please contact our office to make this appointment before you leave the hospital. When to call the office It is normal to have swelling and bruising in the limb that was operated on. This will improve with time. It is also normal to have fevers for the first 2 days after surgery. Reasons you should call your doctor include: Uncontrolled pain; Nausea, vomiting, or constipation that does not improve with medication; Fevers over 101.5, chills, sweats; Drainage or bleeding from the wound; Foul odor; Spreading areas of redness; Any other concerns. Contact Information Please call Dr. Langston's office at [phone] with any concerns. Pending Studies at Discharge: No Stand-Alone Forms: My [facility] Medications and DC Order Prescriptions: New aspirin 81 mg Tablet,Delayed Release (Dr/Ec) 81 mg PO BID 30 Days Qty: 60 0RF acetaminophen [Tylenol Extra Strength] 500 mg Tablet 1,000 mg PO Q8 30 Days Qty: 180 0RF celecoxib 100 mg capsule 100 mg PO BID 30 Days Qty: 60 1RF oxycodone 5 mg Tablet 5 - 10 mg PO Q4H MDD Max 6/day PRN (Reason: Post op pain control) Qty: 28 0RF ondansetron 4 mg tablet,disintegrating 4 mg PO Q8H Qty: 14 0RF Continued (DME) inhalational spacing device Spacer See Rx Instructions .ROUTE .MEDSUPPLY Qty: 1 0RF Rx Instructions: As directed duloxetine 30 mg capsule,delayed release(DR/EC) 30 mg PO HS Qty: 90 3RF atorvastatin 10 mg tablet 10 mg PO HS Qty: 90 3RF albuterol sulfate 90 mcg/actuation HFA aerosol inhaler 2 puff INH Q6H PRN (Reason: shortness of breath or wheezing) Qty: 25.5 3RF Patient Comments: VERY RARELY cholecalciferol (vitamin D3) 50 mcg (2,000 unit) capsule 1,000 mcg PO HS ipratropium bromide 21 mcg (0.03 %) spray,non-aerosol 2 spray intranasal TID PRN (Reason: postnasal drip) Rx Instructions: administer into each nostril Qvar RediHaler 80 mcg/actuation HFA aerosol breath activated 2 inh inhalation BID 90 Days Qty: 31.8 3RF Patient Comments: uses PRN azelastine 137 mcg (0.1 %) aerosol,spray 2 spray intranasal BID PRN (Reason: nasal congestion) Qty: 30 11RF Rx Instructions: administer into each nostril benzonatate 100 mg capsule 100 mg PO TID PRN (Reason: cough) Qty: 30 0RF multivitamin Tablet 1 tab PO 3XWK mecobalamin (vitamin B12) 1,000 mcg tablet,chewable 1,000 mcg PO 2XWK omeprazole 40 mg capsule,delayed release(DR/EC) 40 mg PO QAM Admission Data Admit Date/Time: 11/13/24 10:43 Attending Provider: Daryn Langston Admit Provider: Daryn Langston Primary Care Provider: Noy Cervantes V. Other Providers: [facility]
[2024-11-14 11:31] VITALS: PULSE 86
[2024-11-14] MEDS ORDERED: CeleBREX 200 MG CAP PO SCH (21:00)
[2024-11-16] MEDS ORDERED: Scopolamine REMOVE TRANSDERM PATCH ONE (08:00)
== END 2024-11-14 12:22 | disposition home health service (06) ==
LOC: ASU 07:10 → 3W 07:10